=== PATIENT | female | born 1985 | race Asian ===

== ENCOUNTER 2016-10-23 07:21 | Inpatient (IN) | payer MEDICAID ==
[~2016-10-23] VITALS: Ht 162.6 cm; Wt 64.7 kg
[2016-10-23 08:00] VITALS: BP 137/105; PULSE 79; RESP 18
[2016-10-23] MEDS ORDERED: CALC600T11 PO (08:02)
[2016-10-23] MEDS ORDERED: PRENAT PO (08:02)
--- NOTE | 2016-10-23 08:40 | TRIAGE ---
OB Triage Datetime Report Generated by CPN: 10/23/2016 08:40 Datetime: 10/23/2016 08:15 Labor Evaluation Frequency: 2-5 Monitor Mode: External Duration (sec)2399: 50-90 Quality: Mild Pattern: Normal: <= 5 Contractions in 10 Minutes Resting Tone [place]: Relaxed Heart Rate FHR Baseline Rate: 135 Monitor Mode: External US FHR Baseline Changes: No Baseline Change Variability: Moderate 6-25 bpm Accelerations: 15X15 Decelerations: None Category: Category I Datetime: 10/23/2016 07:52 Vaginal Exam Dilatation (cms): 1.5 Effacement (%): 70 Station: -2 Exam By: PALUI Vaginal Bleeding: Normal Show Cervix, Consistency: Soft Cervix, Position: Posterior Presentation 'A': Cephalic Datetime: 10/23/2016 07:34 Time of Arrival: 10/23/2016 07:12 EGA: 39.4 Arrived By: Wheelchair Arrived From: Emergency Dept Chief Complaint: CTX x2DAY, STRONGER AND EVERY 5 MINUTES FROM 0200. Movement: Present Contractions: Regular (Annotations: Data stored by CPN on behalf of user) Time Contractions Began: 10/23/2016 02:00 Contractions: Q5MIN Rupture of Membranes: Denies Vaginal Bleeding: None Vaginal Discharge: Denies Abdominal Trauma: Not Applicable Patient Complaints: Contractions Time Provider Notified: 10/23/2016 08:12 Provider Notified: DR. PHAN Initial Plan: EFM x2, SVE Datetime: 10/23/2016 07:30 Stage of : OB Triage Assessment Type: Triage Maternal Assessment Level of Consciousness: Fully Conscious Headache: Denies Blurred Vision: No Respiratory Effort: Unlabored; Regular Rhythm; Equal Expansion Breath Sounds, Left: Clear and Equal Breath Sounds, Right: Clear and Equal Nausea/Vomiting: Denies RUQ Epigastric Pain: Denies Lower Extremities Edema: None Degree: None Upper Extremities Edema: None Degree: None Facial Edema: None Temperature Route: Oral Fall Risk Assessment History of Falling: (0) No Secondary Diagnosis: (0) No Ambulatory Aid: (0) Bedrest/Nurse Assist IV Therapy: (0) No Gait: (0) Normal/Bedrest/Immobile Mental Status: (0) Oriented to Own Ability Fall Score: 0 Fall Risk Score Definition: No Risk: No action required Pain Assessment Pain Scale: 8 Pain Presence: Intermittent Pain Type: Contraction Pain Location: Abdomen
[2016-10-23] MEDS ORDERED: LACTATED RINGER'S 1,000 ML IV PRN (08:45)
[2016-10-23] MEDS ORDERED: OXYTOCIN 30 UNITS/LR 500 ML IV SCH ×3 (09:00)
[2016-10-23] MEDS ORDERED: METHYLERGONOVINE 0.2 MG INJ IM PRN (09:00)
[2016-10-23] MEDS ORDERED: OXYTOCIN 30 UNITS/LR 500 ML IV PRN (09:00)
[2016-10-23] MEDS ORDERED: CARBOPROST 250 MCG INJ IM PRN (09:00)
[2016-10-23] MEDS ORDERED: LIDOCAINE 1% (MPF) 30 ML INJ INJ PRN (09:00)
[2016-10-23] MEDS ORDERED: MISOPROSTOL 200 MCG TAB PR PRN (09:00)
[2016-10-23 09:16] LABS: ADD SCAN DIFF NO
[2016-10-23 09:20] LABS: BASOPHILS % 0.3 % (0.0-2.0); EOSINOPHILS # 0.4 10^3/ul (0.0-0.5); EOSINOPHILS % 4.3 % (0.0-7.0); HEMATOCRIT 34.5 % (37.0-47.0); HEMOGLOBIN 11.5 g/dl (12.0-16.0); LYMPHOCYTES # 2.6 10^3/ul (0.8-2.9); LYMPHOCYTES % 26.8 % (15.0-51.0); MEAN CORPUSCULAR HEMOGLOBIN 27.1 pg (29.0-33.0); MEAN CORPUSCULAR HGB CONC 33.3 g/dl (32.0-37.0); MEAN CORPUSCULAR VOLUME 81.2 fl (82.0-101.0); MEAN PLATELET VOLUME 13.3 fl (7.4-10.4); MONOCYTE # 0.9 10^3/ul (0.3-0.9); NEUTROPHIL # 5.6 10^3/ul (1.6-7.5); NEUTROPHILS % 59.1 % (39.0-77.0); PLATELET COUNT 228 10^3/UL (140-415); RED BLOOD COUNT 4.25 10^6/ul (4.20-5.40); RED CELL DISTRIBUTION WIDTH 13.9 % (11.5-14.5); WHITE BLOOD COUNT 9.5 10^3/ul (4.8-10.8)
[2016-10-23] MEDS: LACTATED RINGER'S 1,000 ML IV SCH ×3 (09:25→20:10)
[2016-10-23 09:37] LABS: INR 0.89; PARTIAL THROMBOPLASTIN TIME 27.7 Sec (25.0-35.0); PT RATIO 0.9
[2016-10-23 09:45] LABS: ALBUMIN 3.5 g/dl (3.3-4.9); ALBUMIN/GLOBULIN RATIO 0.97; CALCIUM 9.1 mg/dl (8.4-10.2); CREATININE 0.55 mg/dl (0.44-1.00); POTASSIUM 4.3 mmol/L (3.5-5.1); TOTAL PROTEIN 7.1 g/dl (6.1-8.1); URIC ACID 5.7 mg/dl (3.1-7.9)
[2016-10-23] MEDS ORDERED: MAGNESIUM SULFATE 4 GM/100 ML 100 ML IV ONE (10:00)
[2016-10-23] MEDS: MAGNESIUM SULFATE 20 GM/500 ML 500 ML IV SCH ×2 (10:25→20:06)
[2016-10-23] MEDS ORDERED: EPHEDrine SULFATE 50 MG/5 ML SYG IV PRN (10:30)
[2016-10-23] MEDS ORDERED: NALOXONE (0.4 MG/ML) INJ IV PRN ×2 (10:30→22:30)
[2016-10-23] MEDS ORDERED: ONDANSETRON 4 MG INJ IV PRN ×2 (10:30→22:30)
[2016-10-23] MEDS ORDERED: FENTAnyl 2MCG/ML-ROPIV 0.2% 100 ML BAG EPI SCH (10:30)
[2016-10-23] MEDS ORDERED: LABETALOL HCL 20MG INJ IV STA (13:55)
[2016-10-23 14:13] LABS: ADD UMIC YES; URINE BILIRUBIN (Dip) NEGATIVE (NEGATIVE); URINE BLOOD (Dip) NEGATIVE (NEGATIVE); URINE COLOR LT. YELLOW (YELLOW); URINE GLUCOSE (Dip) NEGATIVE (NEGATIVE); URINE KETONES (Dip) NEGATIVE (NEGATIVE); URINE LEUKOCYTE ESTERASE (Dip) NEGATIVE (NEGATIVE); URINE NITRITE (Dip) NEGATIVE (NEGATIVE); URINE TOTAL PROTEIN (Dip) TRACE (NEGATIVE); URINE UROBILINOGEN (Dip) 0.2 E.U./dL (0.1-1.0)
[2016-10-23 14:30] LABS: URINE RBCS NONE SEEN /HPF (0)
[2016-10-23 14:31] LABS: BACTERIA,URINE FEW; SQUAMOUS EPITHELIAL CELL,UR FEW
[2016-10-23] MEDS ORDERED: MINERAL OIL LIGHT 10 ML VIAL TOP ONE (16:30)
[2016-10-23] MEDS ORDERED: TERBUTALINE 1 ML ONE (19:51)
[2016-10-23] MEDS ORDERED: TERBUTALINE 1 MG/ML INJ SC ONE (20:00)
[2016-10-23] MEDS ORDERED: CEFAZOLIN 2 GM/50 ML (PMX) 50 ML IVPB ONE ×2 (20:05→20:30)
[2016-10-23] MEDS ORDERED: LIDOCAINE 2%/EPI 30 ML INJ ONE (21:09)
--- NOTE | 2016-10-23 21:11 | HP ---
Date/Time of Note Date/Time of Note DATE: 10/23/16 TIME: 20:42 OB - History Hx of Present Free Text/Dictation This is a 31 years old female 1 para 0 with a EDC 10/27/2016 admitted to [facility] at 39 weeks and 4 /7 day in early labor with elevated blood pressure suspect PIH, on admission pelvic exam cervical dilatation 1-2 cm 70% effacement vertex at -2 station blood pressures ranging from 137/105 to 160s over 90s patient was placed on magnesium sulfate for seizure prevention and augmentation of labor by Pitocin infusion labor progressed very well in first stage of labor with complete dilatation vertex at -1 station approximately at 1400, second stage of labor in spite of 7 hours of coached pushing and some resting in between presenting part made no further descent And Vertex Developed a Large caput ,failure to descend possible due to CPD was discussed with the patient she declined further trial of labor and requested delivery Estimated Due Date: Oct 27, 2016 : 1 Para: 0 Care: Good Care Past Family/Social History * Past Medical, Surgical, Family and Obstetric Histories reviewed from chart. Rubella: immune RPR/VDRL: Negative GBS Status: Negative HBsAG: Negative OB Admission Exam Vital Signs Vital Signs Vital Signs Date Time Temp Pulse Resp B/P Pulse Ox O2 Delivery O2 Flow Rate FiO2 10/23/16 08:00 97.8 79 18 137/105 98 Room Air Physical Exam HEENT: WNL Heart: Rhythm Normal Lungs: Clear, Equal Abdomen: WNL Extremities: Normal Reflexes: Normal Cervical Dilatation: other (Completed dilatation 7 hours) Effacement: 100% Station: 0 Amniotic Fluid: Clear Heart Rate: 130's Accelerations: Accelerations Present Varibility: Marked Contractions on Admission: 6-10 Minutes Apart Intensity: Mild Last 72 hours Lab Results CBC & BMP 10/23/16 08:30 10/23/16 08:38 Liver Function Test 10/23/16 08:38 Alanine Aminotransferase (ALT/SGPT) 17 Albumin 3.5 Alkaline Phosphatase 295 H Aspartate Amino Transf (AST/SGOT) 21 Direct Bilirubin 0.00 Total Protein 7.1 Magnesium Level Test 10/23/16 18:15 Magnesium Level 6.8 *H OB Assessment/Plan Reason for admission: active labor, other Plan: Other ( section due to failure to descend presenting part at second stage of labor for approximately 6-7 hours with coached pushing and resting between) ANGEL PHAN MD Oct 23, 2016 20:58
[2016-10-23] MEDS ORDERED: EPHEDrine SULFATE 50 MG/5 ML SYG ONE (21:19)
[2016-10-23] MEDS ORDERED: morphine SULFATE/PF (10 MG/10 ML) INJ ONE (21:19)
[2016-10-23] MEDS ORDERED: METOCLOPRAMIDE 10 MG INJ ONE (21:19)
[2016-10-23] MEDS ORDERED: OXYTOCIN 30 UNITS/LR 500 ML IV ONE (21:19)
[2016-10-23] MEDS ORDERED: ONDANSETRON 4 MG INJ ONE (21:19)
[2016-10-23] MEDS ORDERED: OXYTOCIN 10 UNIT INJ ONE (21:19)
[2016-10-23] MEDS ORDERED: HYDROmorphONE 1 MG/ML SYG IV PRN ×2 (22:30)
[2016-10-23] MEDS ORDERED: LABETALOL HCL 20MG INJ IV PRN (22:30)
[2016-10-23] MEDS ORDERED: DIPHENHYDRAMINE 50 MG INJ IV PRN (22:30)
[2016-10-23] MEDS ORDERED: morphine SULFATE/PF (10 MG/10 ML) INJ EPI ONE (22:30)
[2016-10-23] MEDS ORDERED: morphine 2 MG INJ IV PRN ×2 (22:30)
--- NOTE | 2016-10-23 22:46 | DELSUM ---
Delivery Summary A-C Datetime Report Generated by CPN: 10/23/2016 22:45 DELIVERY PERSONNEL Field Party Manager: Pang, Julisa MATERNAL INFORMATION Delivery Anesthesia: Epidural Medications in Delivery: SEE ANESTHESIA RECORDS Estimated Blood Loss (ml): 500 Placenta Cultured: No Maternal Complications: None LABOR SUMMARY EDC: 10/26/2016 00:00 No. Babies in Womb: 1 Attempted: No Labor Anesthesia: Epidural LABOR INFORMATION Reason for Induction: Not Applicable Onset of Labor: 10/23/2016 12:00 Complete Dilatation: 10/23/2016 17:12 Oxytocin: Augmentation Group B Beta Strep: Negative Group B Beta Strep: Negative Antibiotics # of Doses: 1 Antibiotics Time of Last Dose: 10/23/2016 21:10 Steroids Given: None Reason Steroids Not Administered: Not Applicable MEMBRANES Membranes Rupture Method: Spontaneous Rupture of Membranes: 10/23/2016 13:42 Length of Rupture (hr): 7.80 Amniotic Fluid Color: Clear Amniotic Fluid Amount: Small Amniotic Fluid Odor: None STAGES OF LABOR Stage 1 hr: 5 Stage 1 min: 12 Stage 2 hr: 4 Stage 2 min: 18 Stage 3 hr: 0 Stage 3 min: 1 Total Time in Labor hr: 9 Total Time in Labor min: 31 CSECTION DELIVERY Primary Indication: Arrest of Descent CSection Urgency: Emergency CSection Incidence: Primary Labor: Labor Elective: Elective CSection Incision: Lower Uterine Transverse BABY A INFORMATION Delivery Date/Time: 10/23/2016 21:30 Method of Delivery: Born in Route : No : N/A Forceps: N/A Vacuum Extraction: N/A Shoulder Dystocia : N/A SHOULDER DYSTOCIA BABY A Delivery Date/Time: 10/23/2016 21:30 PRESENTATION/POSITION BABY A Presentation: Cephalic Cephalic Presentation: Vertex Breech Presentation: N/A PLACENTA INFORMATION BABY A Placenta Delivery Time : 10/23/2016 21:31 Placenta Method of Delivery: Manual Removal Placenta Status: Delivered SCORES BABY A Heart Rate 1 min: >100 bpm Resp Effort 1 min: Slow, Irregular Reflex Irritability 1 min: Cough/Sneeze/Pulls Away Muscle Tone 1 min: Some Flexion of Extrem Color 1 min: Blue/Pale Resuscitation Effort 1 min: Tactile Stimulation; PPV/NCPAP SCORE 1 MIN: 6 Heart Rate 5 min: >100 bpm Resp Effort 5 min: [place] Reflex Irritability 5 min: Cough/Sneeze/Pulls Away Muscle Tone 5 min: Active Motion Color 5 min: Body [place], Extremit Blue Resuscitation Effort 5 min: Tactile Stimulation; PPV/NCPAP SCORE 5 MIN: 9 INFORMATION BABY A Gestational Age at Delivery: 39.4 Gestational Status: Full Term- 39- 40.6 Weeks Infant Outcome : Liveborn Condition : Stable Sex: Male IDENTIFICATION/MEDS BABY A ID Band Number: [id number] ID Band Location: Right Leg; Left Arm Sensor Applied: Yes Sensor Number: [id number] Sensor Location : Cord Clamp Vitamin K Given : Not Given Erythromycin Given: Not Given WEIGHT/LENGTH BABY A Birthweight (gm): 2720 Weight (lb): 6 Infant Weight (oz): 0 Infant Length (in): 19.00 Infant Length (cm): 48.26 CORD INFORMATION BABY A No. Cord Vessels: 3 Nuchal Cord : N/A Cord Blood Taken: Yes Suction: Mouth; Nose ASSESSMENT BABY A Infant Complications: Multiple Late Decels; Multiple Variable Decels Physical Findings at Delivery: Caput Succedaneum Respirations: Appears Normal Coal Tower Operator/ALS Called : Yes Infant Care By: KIESHA CONSTANTINO/SHARON [employer] FARM MANAGER Transferred To: Remains with Mother
[2016-10-24] VITALS (20 sets, daily range): BP systolic 108–158; BP diastolic 59–89; PULSE 73–118; RESP 0–21
[2016-10-24] MEDS: KETOROLAC 30 MG INJ IV PRN ×2 (00:11→18:41)
--- NOTE | 2016-10-24 00:53 | OPR ---
DATE OF OPERATION: 10/23/2016 PREOPERATIVE DIAGNOSES: 1. Intrauterine at 39 weeks and 4 days. 2. Failure to progress, second stage of labor after 6 to 7 hours of complete dilatation, pushing, a nd resting in between, failure to descend. POSTOPERATIVE DIAGNOSES: 1. Intrauterine at 39 weeks and 4 days. 2. Failure to progress, second stage of labor after 6 to 7 hours of complete dilatation, pushing, a nd resting in between, failure to descend. OPERATION PERFORMED: Primary transverse low cervical section. SURGEON: Angel Phan MD. ENTRY CLERK: Dr. Angela. ANESTHESIA: Epidural. ANESTHESIOLOGIST: Dr. Barclay. FINDINGS: Live baby boy with Apgars 6 and 9. DETAILS OF THE PROCEDURE: Under satisfactory epidural anesthesia, the patient was prepped and drape d and placed in supine position, tilted to the left. Pfannenstiel incision was made, carried throug h the subcutaneous tissue. Bleeders brought under control with electrocautery. Fascia incised to t he length of the incision. Rectus muscle divided in midline. Peritoneum exposed, entered through a transverse incision. Exploration of abdomen gravid uterus with evidence of a long labor and overex panded lower segment of the uterus. Bladder flap was developed. Transverse incision was made in th e upper part of the lower segment of the uterus. Amniotic sac ruptured. Clear amniotic fluid noted . Live baby boy was delivered from wedged in occiput posterior position. Nasal oropharyngeal sucti on was performed. Cord was clamped after stopped pulsation. Baby handed to the team for i mmediate attention. Patient received 20 units of Pitocin. Placenta delivered manually intact. [place] rine cavity cleaned with wet sponge and drainage established. Uterus closed in 2 layers using Mon[place] ryl #1 in continuous fashion. Peritoneal cavity irrigated with copious amount of sterile water. Sp onge, needle and instrument reported to be correct. Abdominal peritoneum closed with 2-0 chromic ca tgut continuously. Rectus muscle approximated with few interrupted 2-0 chromic catgut. Fascia clos ed with #1 PDS in a continuous fashion. Subcutaneous tissue approximated with interrupted 2-0 chrom ic catgut. Skin closed with samson. Estimated blood loss 600 mL. Urine bag contained 200 to 300 mL of clear urine. Patient tolerated procedure well, transferred to recovery room in a good conditi on. Dictated By: ANGEL PHAN MD HF/NTS Conf#: [id number] DID#: [id number]
[2016-10-24] MEDS ORDERED: SENNA/DOCUSATE NA (8.6MG/50MG) TAB PO PRN (03:00)
[2016-10-24] MEDS: OXYTOCIN 30 UNITS/LR 500 ML IV SCH ×6 (03:00→23:00)
[2016-10-24] MEDS: LACTATED RINGER'S 1,000 ML IV SCH ×2 (04:47→16:38)
[2016-10-24] MEDS: MAGNESIUM SULFATE 20 GM/500 ML 500 ML IV SCH ×3 (05:39→18:45)
[2016-10-24] MEDS: CEFAZOLIN 1 GM/50 ML (PMX) 50 ML IVPB SCH ×2 (05:57→06:00)
[2016-10-24] MEDS: MULTIVIT/MIN/FOLATE/IRON/PREN TAB PO SCH (09:00)
[2016-10-24 13:03] LABS: ADD SCAN DIFF NO
[2016-10-24 13:07] LABS: HEMATOCRIT 29.4 % (37.0-47.0); HEMOGLOBIN 9.7 g/dl (12.0-16.0); MEAN CORPUSCULAR HEMOGLOBIN 27.1 pg (29.0-33.0); MEAN CORPUSCULAR VOLUME 82.1 fl (82.0-101.0); PLATELET COUNT 185 10^3/UL (140-415); RED BLOOD COUNT 3.58 10^6/ul (4.20-5.40); RED CELL DISTRIBUTION WIDTH 14.1 % (11.5-14.5); WHITE BLOOD COUNT 22.8 10^3/ul (4.8-10.8)
[2016-10-24] MEDS ORDERED: CEFAZOLIN 1 GM/50 ML (PMX) 50 ML IVPB SCH (14:00)
--- NOTE | 2016-10-24 14:21 | PN ---
Date/Time of Note Date/Time of Note DATE: 10/24/16 TIME: 14:19 OB Subjective Subjective Subjective Post day 1 Afebrile vital signs are stable blood pressure 119/70, resting in bed in no apparent distress abdomen soft bowel sounds weak but present uterus firm vulvar labial edema extremity normal Laboratory Tests Test 10/23/16 18:15 10/24/16 00:23 10/24/16 07:50 10/24/16 12:14 Magnesium Level 6.8mg/dl 6.3mg/dl 6.0mg/dl 5.9mg/dl White Blood Count 22.810^3/ul Red Blood Count 3.5810^6/ul Hemoglobin 9.7g/dl Hematocrit 29.4% Mean Corpuscular Volume 82.1fl Mean Corpuscular Hemoglobin 27.1pg Mean Corpuscular Hemoglobin Concent 33.0g/dl Red Cell Distribution Width 14.1% Platelet Count 73418^3/UL Mean Platelet Volume 13.0fl Current Medications Medications (Trade) Dose Ordered Sig/Johnnie Route PRN Reason Start Time Stop Time Status Last Admin Dose Admin Lactated Ringer's 1,000 ml @ 125 mls/hr Q8H IV 10/23/16 08:38 10/24/16 04:47 Oxytocin/Lactated Ringer's 500 ml @ 0 mls/hr TITRATE IV 10/23/16 09:00 10/24/16 02:12 DC 10/23/16 12:31 Lidocaine 30 ml 30 ml ONCE PRN INJ EPISIOTOMY/TEARING 10/23/16 09:00 10/24/16 02:12 DC Oxytocin/Lactated Ringer's 500 ml @ 125 mls/hr ONCE -MAY REPEAT X1 IV 10/23/16 09:00 10/24/16 02:12 DC 10/23/16 22:26 Oxytocin/Lactated Ringer's 500 ml @ 125 mls/hr ONCE IV 10/23/16 09:00 10/24/16 02:12 DC Lactated Ringer's 1,000 ml @ 2,000 mls/hr Q30M PRN IV PRE-EPIDURAL BOLUS 10/23/16 08:45 10/24/16 02:12 DC Oxytocin/Lactated Ringer's 500 ml @ 0 mls/hr ONCE PRN IV For Hemorrhage Management 10/23/16 09:00 10/24/16 02:12 DC Methylergonovine Maleate (Methergine) 0.2 mg ONCE PRN IM VAGINAL BLEEDING 10/23/16 09:00 10/24/16 02:12 DC Carboprost Tromethamine (Hemabate) 250 mcg ONCE PRN IM VAGINAL BLEEDING 10/23/16 09:00 10/24/16 02:12 DC Misoprostol 1000 mcg 1,000 mcg ONCE PRN CO VAGINAL BLEEDING 10/23/16 09:00 10/24/16 02:12 DC Magnesium Sulfate 100 ml @ 200 mls/hr ONCE ONCE IV 10/23/16 10:00 10/23/16 10:29 DC 10/23/16 09:50 Magnesium Sulfate (Magnesium Sulfate 20 Gm/500 ml) 500 ml @ 50 mls/hr Q10H IV 10/23/16 09:39 10/24/16 08:42 Naloxone HCl (Narcan) 0.1 mg Q2M PRN IV FOR RESP RATE 8 OR LESS 10/23/16 10:30 10/24/16 02:13 DC Ondansetron HCl (Zofran Inj) 4 mg Q6H PRN IV NAUSEA AND/OR VOMITING 10/23/16 10:30 10/24/16 10:29 DC 10/24/16 08:24 Fentanyl/ Ropivacaine 100 ml EPIDURAL INFUSION EPI 10/23/16 10:30 10/24/16 02:12 DC 10/23/16 19:02 Ephedrine Sulfate 5 mg PRN PRN IV BLOOD PRESSURE SUPPORT 10/23/16 10:30 10/24/16 02:12 DC Labetalol HCl (Labetalol) 20 mg ONCE STAT IV 10/23/16 13:55 10/23/16 13:58 DC 10/23/16 14:08 Mineral Oil ONCE ONCE TOP 10/23/16 16:30 10/23/16 16:31 DC 10/23/16 19:02 Terbutaline Sulfate (Brethine) 1 ml @ STK-MED ONCE .ROUTE 10/23/16 19:51 10/23/16 19:52 DC Terbutaline Sulfate 0.25 mg 0.25 mg ONCE ONCE SC 10/23/16 20:00 10/23/16 20:01 DC 10/23/16 20:07 Cefazolin Sodium/ Dextrose 50 ml @ ud STK-MED ONCE IVPB 10/23/16 20:05 10/23/16 20:06 DC Cefazolin Sodium/ Dextrose (Ancef 2 Gm/50 ml (Pmx)) 50 ml @ 100 mls/hr ONCE ONCE IVPB 10/23/16 20:30 10/23/16 20:59 DC Lidocaine/ Epinephrine (Xylocaine 2%/ Epi) 30 ml STK-MED ONCE .ROUTE 10/23/16 21:09 10/23/16 21:10 DC Ephedrine Sulfate 50 mg 50 mg STK-MED ONCE .ROUTE 10/23/16 21:19 10/23/16 21:20 DC Oxytocin/Lactated Ringer's 500 ml @ ud STK-MED ONCE IV 10/23/16 21:19 10/23/16 21:20 DC Morphine Sulfate (Duramorph) 10 mg STK-MED ONCE .ROUTE 10/23/16 21:19 10/23/16 21:20 DC Ondansetron HCl (Zofran Inj) 4 mg STK-MED ONCE .ROUTE 10/23/16 21:19 10/23/16 21:20 DC Metoclopramide HCl (Reglan) 10 mg STK-MED ONCE .ROUTE 10/23/16 21:19 10/23/16 21:20 DC Oxytocin (Oxytocin) 10 units STK-MED ONCE .ROUTE 10/23/16 21:19 10/23/16 21:20 DC Naloxone HCl (Narcan) 0.1 mg Q2M PRN IV FOR RESP RATE 8 OR LESS 10/23/16 22:30 10/24/16 22:29 Ketorolac Tromethamine (Toradol) 30 mg Q6H PRN IV PAIN 10/23/16 22:30 10/24/16 22:29 10/24/16 00:11 Morphine Sulfate (morphine) 2 mg Q3H PRN IV PAIN LEVEL 1-5 10/23/16 22:30 10/24/16 22:29 Morphine Sulfate (morphine) 4 mg Q3H PRN IV PAIN LEVEL 6-10 10/23/16 22:30 10/24/16 22:29 Hydromorphone HCl (Dilaudid) 0.2 mg Q3H PRN IV PAIN LEVEL 1-5 10/23/16 22:30 10/24/16 22:29 Hydromorphone HCl (Dilaudid) 0.4 mg Q3H PRN IV PAIN LEVEL 6-10 10/23/16 22:30 10/24/16 22:29 Diphenhydramine HCl (Benadryl) 25 mg Q6H PRN IV ITCHING 10/23/16 22:30 10/24/16 22:29 Ondansetron HCl (Zofran Inj) 4 mg Q6H PRN IV NAUSEA AND/OR VOMITING 10/23/16 22:30 10/24/16 22:29 Morphine Sulfate (Duramorph) 3 mg GIVEN ANESTH ONCE EPI 10/23/16 22:30 10/23/16 22:31 DC Labetalol HCl 20 mg 20 mg PRN PRN IV ELEVATED BLOOD PRESSURE 10/23/16 22:30 10/24/16 02:12 DC Cefazolin Sodium (Ancef 1 Gm/50 ml (Pmx)) 50 ml @ 100 mls/hr Q6 IVPB 10/24/16 03:00 10/24/16 09:00 DC 10/24/16 05:57 Prenat Multivit/ [place]/Iron/Folic Ac ( S) 1 tab DAILY PO 10/24/16 09:00 Acetaminophen/ Hydrocodone Bitart ([place] (5/325)) 1 tab Q6H PRN PO MODERATE PAIN LEVEL 4-6 10/24/16 03:00 Acetaminophen/ Hydrocodone Bitart ([place] (5/325)) 2 tab Q6H PRN PO PAIN LEVEL 6-10 10/24/16 03:00 Senna/Docusate Sodium 1 tab 1 tab PRN PRN PO CONSTIPATION 10/24/16 03:00 Oxytocin/Lactated Ringer's 500 ml @ 125 mls/hr Q4H IV 10/24/16 03:00 10/24/16 13:39 Cefazolin Sodium (Ancef 1 Gm/50 ml (Pmx)) 50 ml @ 100 mls/hr ONCE IVPB 10/24/16 14:00 10/24/16 14:29 10/24/16 13:54 ANGEL PHAN MD Oct 24, 2016 14:21
[2016-10-24 14:57] LABS: LYMPHOCYTES # 0.9 10^3/ul (0.8-2.9); MONOCYTE # 1.4 10^3/ul (0.3-0.9); NEUTROPHIL # 18.5 10^3/ul (1.6-7.5)
[2016-10-25] MEDS: LACTATED RINGER'S 1,000 ML IV SCH ×3 (00:38→16:38)
[2016-10-25] MEDS: OXYTOCIN 30 UNITS/LR 500 ML IV SCH ×6 (03:00→23:00)
[2016-10-25 03:50] VITALS: BP 138/84; PULSE 84; RESP 16
[2016-10-25 04:00] VITALS: BP 138/84; PULSE 84; RESP 20
[2016-10-25] MEDS: HYDROCODONE/APAP (5/325) TAB PO PRN ×3 (04:40→22:06)
[2016-10-25 09:00] VITALS: BP 138/83; PULSE 78; RESP 18
[2016-10-25] MEDS: MULTIVIT/MIN/FOLATE/IRON/PREN TAB PO SCH (09:43)
[2016-10-25] MEDS ORDERED: NA PHOSPHATE/BIPHOS 133 ML ENEMA PR ONE (10:30)
--- NOTE | 2016-10-25 10:31 | PN ---
Date/Time of Note Date/Time of Note DATE: 10/25/16 TIME: 10:30 OB Subjective Subjective Subjective Post day 2 Vital signs stable abdomen soft incision dry bowel sounds present no bowel movement extremities no enema recommended ANGEL PHAN MD Oct 25, 2016 10:31
[2016-10-25] MEDS: MAGNESIUM SULFATE 20 GM/500 ML 500 ML IV SCH ×2 (11:39→21:34)
[2016-10-25 12:30] VITALS: BP 139/89; PULSE 89
[2016-10-25 20:30] VITALS: BP 136/83; PULSE 80; RESP 20
[2016-10-26] MEDS: LACTATED RINGER'S 1,000 ML IV SCH (00:38)
[2016-10-26] MEDS: OXYTOCIN 30 UNITS/LR 500 ML IV SCH ×3 (03:00→11:00)
[2016-10-26] MEDS: HYDROCODONE/APAP (5/325) TAB PO PRN ×3 (03:30→15:41)
[2016-10-26] MEDS: MAGNESIUM SULFATE 20 GM/500 ML 500 ML IV SCH (07:39)
[2016-10-26 08:00] VITALS: BP 109/67; PULSE 95; RESP 18
[2016-10-26] MEDS: MULTIVIT/MIN/FOLATE/IRON/PREN TAB PO SCH (08:37)
--- NOTE | 2016-10-26 09:43 | DS ---
Date/Time of Note Date/Time of Note Prescription was given to the patient controlled post pain Current Medications Medications (Trade) Dose Ordered Sig/Johnnie Route PRN Reason Start Time Stop Time Status Last Admin Dose Admin Lactated Ringer's 1,000 ml @ 125 mls/hr Q8H IV 10/23/16 08:38 10/24/16 04:47 Oxytocin/Lactated Ringer's 500 ml @ 0 mls/hr TITRATE IV 10/23/16 09:00 10/24/16 02:12 DC 10/23/16 12:31 Lidocaine 30 ml 30 ml ONCE PRN INJ EPISIOTOMY/TEARING 10/23/16 09:00 10/24/16 02:12 DC Oxytocin/Lactated Ringer's 500 ml @ 125 mls/hr ONCE -MAY REPEAT X1 IV 10/23/16 09:00 10/24/16 02:12 DC 10/23/16 22:26 Oxytocin/Lactated Ringer's 500 ml @ 125 mls/hr ONCE IV 10/23/16 09:00 10/24/16 02:12 DC Lactated Ringer's 1,000 ml @ 2,000 mls/hr Q30M PRN IV PRE-EPIDURAL BOLUS 10/23/16 08:45 10/24/16 02:12 DC Oxytocin/Lactated Ringer's 500 ml @ 0 mls/hr ONCE PRN IV For Hemorrhage Management 10/23/16 09:00 10/24/16 02:12 DC Methylergonovine Maleate (Methergine) 0.2 mg ONCE PRN IM VAGINAL BLEEDING 10/23/16 09:00 10/24/16 02:12 DC Carboprost Tromethamine (Hemabate) 250 mcg ONCE PRN IM VAGINAL BLEEDING 10/23/16 09:00 10/24/16 02:12 DC Misoprostol 1000 mcg 1,000 mcg ONCE PRN NV VAGINAL BLEEDING 10/23/16 09:00 10/24/16 02:12 DC Magnesium Sulfate 100 ml @ 200 mls/hr ONCE ONCE IV 10/23/16 10:00 10/23/16 10:29 DC 10/23/16 09:50 Magnesium Sulfate (Magnesium Sulfate 20 Gm/500 ml) 500 ml @ 50 mls/hr Q10H IV 10/23/16 09:39 10/24/16 18:45 Naloxone HCl (Narcan) 0.1 mg Q2M PRN IV FOR RESP RATE 8 OR LESS 10/23/16 10:30 10/24/16 02:13 DC Ondansetron HCl (Zofran Inj) 4 mg Q6H PRN IV NAUSEA AND/OR VOMITING 10/23/16 10:30 10/24/16 10:29 DC 10/24/16 08:24 Fentanyl/ Ropivacaine 100 ml EPIDURAL INFUSION EPI 10/23/16 10:30 10/24/16 02:12 DC 10/23/16 19:02 Ephedrine Sulfate 5 mg PRN PRN IV BLOOD PRESSURE SUPPORT 10/23/16 10:30 10/24/16 02:12 DC Labetalol HCl (Labetalol) 20 mg ONCE STAT IV 10/23/16 13:55 10/23/16 13:58 DC 10/23/16 14:08 Mineral Oil ONCE ONCE TOP 10/23/16 16:30 10/23/16 16:31 DC 10/23/16 19:02 Terbutaline Sulfate (Brethine) 1 ml @ ud STK-MED ONCE .ROUTE 10/23/16 19:51 10/23/16 19:52 DC Terbutaline Sulfate 0.25 mg 0.25 mg ONCE ONCE SC 10/23/16 20:00 10/23/16 20:01 DC 10/23/16 20:07 Cefazolin Sodium/ Dextrose 50 ml @ ud STK-MED ONCE IVPB 10/23/16 20:05 10/23/16 20:06 DC Cefazolin Sodium/ Dextrose (Ancef 2 Gm/50 ml (Pmx)) 50 ml @ 100 mls/hr ONCE ONCE IVPB 10/23/16 20:30 10/23/16 20:59 DC Lidocaine/ Epinephrine (Xylocaine 2%/ Epi) 30 ml STK-MED ONCE .ROUTE 10/23/16 21:09 10/23/16 21:10 DC Ephedrine Sulfate 50 mg 50 mg STK-MED ONCE .ROUTE 10/23/16 21:19 10/23/16 21:20 DC Oxytocin/Lactated Ringer's 500 ml @ ud STK-MED ONCE IV 10/23/16 21:19 10/23/16 21:20 DC Morphine Sulfate (Duramorph) 10 mg STK-MED ONCE .ROUTE 10/23/16 21:19 10/23/16 21:20 DC Ondansetron HCl (Zofran Inj) 4 mg STK-MED ONCE .ROUTE 10/23/16 21:19 10/23/16 21:20 DC Metoclopramide HCl (Reglan) 10 mg STK-MED ONCE .ROUTE 10/23/16 21:19 10/23/16 21:20 DC Oxytocin (Oxytocin) 10 units STK-MED ONCE .ROUTE 10/23/16 21:19 10/23/16 21:20 DC Naloxone HCl (Narcan) 0.1 mg Q2M PRN IV FOR RESP RATE 8 OR LESS 10/23/16 22:30 10/24/16 22:29 DC Ketorolac Tromethamine (Toradol) 30 mg Q6H PRN IV PAIN 10/23/16 22:30 10/24/16 22:29 DC 10/24/16 18:41 Morphine Sulfate (morphine) 2 mg Q3H PRN IV PAIN LEVEL 1-5 10/23/16 22:30 10/24/16 22:29 DC Morphine Sulfate (morphine) 4 mg Q3H PRN IV PAIN LEVEL 6-10 10/23/16 22:30 10/24/16 22:29 DC Hydromorphone HCl (Dilaudid) 0.2 mg Q3H PRN IV PAIN LEVEL 1-5 10/23/16 22:30 10/24/16 22:29 DC Hydromorphone HCl (Dilaudid) 0.4 mg Q3H PRN IV PAIN LEVEL 6-10 10/23/16 22:30 10/24/16 22:29 DC Diphenhydramine HCl (Benadryl) 25 mg Q6H PRN IV ITCHING 10/23/16 22:30 10/24/16 22:29 DC Ondansetron HCl (Zofran Inj) 4 mg Q6H PRN IV NAUSEA AND/OR VOMITING 10/23/16 22:30 10/24/16 22:29 DC Morphine Sulfate (Duramorph) 3 mg GIVEN ANESTH ONCE EPI 10/23/16 22:30 10/23/16 22:31 DC Labetalol HCl 20 mg 20 mg PRN PRN IV ELEVATED BLOOD PRESSURE 10/23/16 22:30 10/24/16 02:12 DC Cefazolin Sodium (Ancef 1 Gm/50 ml (Pmx)) 50 ml @ 100 mls/hr Q6 IVPB 10/24/16 03:00 10/24/16 09:00 DC 10/24/16 05:57 Prenat Multivit/ [place]/Iron/Folic Ac ( S) 1 tab DAILY PO 10/24/16 09:00 10/26/16 08:37 Acetaminophen/ Hydrocodone Bitart ([place] (5/325)) 1 tab Q6H PRN PO MODERATE PAIN LEVEL 4-6 10/24/16 03:00 10/26/16 03:30 Acetaminophen/ Hydrocodone Bitart ([place] (5/325)) 2 tab Q6H PRN PO PAIN LEVEL 6-10 10/24/16 03:00 10/26/16 08:37 Senna/Docusate Sodium 1 tab 1 tab PRN PRN PO CONSTIPATION 10/24/16 03:00 10/25/16 12:14 Oxytocin/Lactated Ringer's 500 ml @ 125 mls/hr Q4H IV 10/24/16 03:00 10/24/16 13:39 Cefazolin Sodium (Ancef 1 Gm/50 ml (Pmx)) 50 ml @ 100 mls/hr ONCE IVPB 10/24/16 14:00 10/24/16 14:29 DC 10/24/16 13:54 Sodium Biphosphate/ Sodium Phosphate (Fleet Enema) 133 ml ONCE ONCE NV 10/25/16 10:30 10/25/16 10:31 DC DATE: 10/26/16 TIME: 09:32 Obstetrical Discharge Record Final Diagnosis Final Diagnosis: Term delivered Section Section: Primary Complications Other (Lack of progress) Augmentation: Yes Condition on Discharge Physical Assessment Voiding: Yes Bowel Movement: Yes Breast: Soft, non-tender Fundus: Firm Abdomen and Incision: Healing well samson to be removed in clinic 3 days later Calf Tenderness: No Patient Condition: Good JENNIFER REAVES MD Oct 26, 2016 09:43
[2016-10-26 16:00] VITALS: BP 141/90; PULSE 86; RESP 18
== END 2016-10-26 18:15 | disposition home or self-care (01) | DRG 766 ==
LOC: OBT 07:21 → L-D 07:22 → OBT 08:19 → L-D 20:44 → PP1 10-24 01:37
PROVIDERS: ADMIT Obstetrics & Gynecology; ATTEND Obstetrics & Gynecology
PROC: 10D00Z1 Extraction of Products of Conception, Low, Open Approach (ICD-10-PCS; principal; 2016-10-23 21:30)
DX: O16.4 Unspecified maternal hypertension, complicating childbirth (principal); O62.0 Primary inadequate contractions; Z3A.39 39 weeks gestation of pregnancy; Z37.0 Single live birth
CPT/HCPCS: 62319; 80053; 81001; 81003; 83735; 84560; 85025; 85384; 85610; 85730; 86592; 86706; 86900; 86901; 88307; 94760; 99464; G0463; J0690; J1885; J2274; J2405; J2590; J2765; J3010; J3105; J3475; J7120